=== PATIENT | male | born 1980 | race Hispanic/Latino ===

== ENCOUNTER 2020-03-03 00:09 | Emergency (ER) | payer SELFPAY ==
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
== END 2020-03-03 01:23 ==
LOC: ERS 00:09
DX: S00.33XA Contusion of nose, initial encounter (principal); R41.82 Altered mental status, unspecified; I10 Essential (primary) hypertension; V89.2XXA Person injured in unspecified motor-vehicle accident, traffic, initial encounter
CPT/HCPCS: 70450; 72125

== ENCOUNTER 2020-11-09 16:03 | Emergency (ER) | payer SELFPAY ==
[2020-11-09] MEDS ORDERED: cefTRIAXone\\ROCEPHIN 500 MG VIAL ONE (18:14)
[2020-11-09] MEDS ORDERED: Sterile Water 10 ML ONE (18:15)
[2020-11-11 19:31] LABS: Chlam.trachomatis by PCR,Urine Not Detected (NotDetected)
== END 2020-11-09 18:40 | disposition home or self-care (01) ==
LOC: ERS 16:03
DX: B00.9 Herpesviral infection, unspecified (principal); Z20.2 Contact with and (suspected) exposure to infections with a predominantly sexual mode of transmission
CPT/HCPCS: 87491; 87591; 96372; 99283; J0696

== ENCOUNTER 2020-11-13 22:38 | Inpatient (IN) | payer SELFPAY ==
[2020-11-13 23:18] LABS: #Basophils 0.1 thou/uL (0.0-0.2); #Eosinphils 0.1 thou/uL (0.0-0.7); #Lymphocytes 3.2 thou/uL (1.20-3.40); #Monocytes 0.7 thou/uL (0.11-0.59); #Neutrophils 5.1 thou/uL (1.40-6.50); %Basophils 0.6 % (0.0-1.0); %Eosinophils 1.6 % (0.0-10.0); %Lymphocytes 34.9 % (21.0-51.0); %Monocytes 7.3 % (0.0-10.0); %Neutrophils 55.6 % (42.0-75.0); Hemoglobin 17.4 g/dL (14.0-18.0); Mean Corpuscular HGB CONC 35.8 g/dL (32.0-36.0); Mean Corpuscular Hemoglobin 33.9 pg (27.0-31.0); Mean Corpuscular Volume 94.6 fL (78.0-98.0); Mean Platelet Volume 7.1 fL (7.4-10.4); Platelet Count 245 thou/uL (130-400); RBC Distribution Width 11.4 % (11.5-14.5); Red Blood Cell (RBC) Count 5.15 mill/uL (4.70-6.10); White Blood Cell (WBC) Count 9.1 thou/uL (4.8-10.8)
[2020-11-13] MEDS ORDERED: Labetalol HCl 100 MG/20 ML VIAL ONE (23:59)
[2020-11-14 00:03] LABS: CKMB 2.9 ng/mL (0-6.6)
[2020-11-14] MEDS ORDERED: Aspirin Chewable 81 MG TAB ONE ×2 (00:06→00:07)
[2020-11-14 01:17] LABS: Albumin 4.2 g/dL (3.5-5.0)
[2020-11-14 01:18] LABS: Calcium 9.9 mg/dL (7.8-10.44); Chloride 98 mmol/L (98-107); Potassium 4.3 mmol/L (3.5-5.1); Sodium 133 mmol/L (136-145)
[2020-11-14 01:19] LABS: Globulin 3.4 g/dL (2.4-3.5); Glucose 120 mg/dL (70-105); Protein, Total 7.6 g/dL (6.0-8.3)
[2020-11-14 01:21] LABS: Anion Gap 14 mmol/L (10-20); Bilirubin, Total 1.5 mg/dL (0.2-1.2); Carbon Dioxide 25 mmol/L (22-29)
[2020-11-14 01:22] LABS: Alkaline Phosphatase 94 U/L (40-110); Calc. Creatinine Clearance 0 mL/min (70-130)
[2020-11-14 01:23] LABS: BUN (Urea Nitrogen) 9 mg/dL (8.9-20.6)
[2020-11-14 01:24] LABS: AST (SGOT) 152 U/L (5-34)
[2020-11-14 01:25] LABS: ALT (SGPT) 237 U/L (8-55)
[2020-11-14 05:10] LABS: Troponin I 0.041 ng/mL (< 0.028)
[2020-11-14 06:15] VITALS: BMI 33.4
[2020-11-14 07:03] LABS: SARS-CoV-2 NAA Rapid Test Not Detected (NotDetected)
[2020-11-14] MEDS ORDERED: Dextrose 50% Abboject 50 ML SYRINGE SLOW IVP PRN (09:19)
[2020-11-14] MEDS ORDERED: HumaLOG 300 UNITS/3 ML VIAL SC PRN ×2 (09:19)
[2020-11-14] MEDS ORDERED: Dextrose 5% in Water 1,000 ML IV PRN (09:19)
[2020-11-14] MEDS ORDERED: Amlodipine 5 MG TAB PO SCH (09:30)
[2020-11-14] MEDS ORDERED: Amlodipine 5 MG TAB ONE (09:44)
[2020-11-14 09:54] LABS: Hemoglobin A1c 5.5 % (4.0-6.0)
[2020-11-14] MEDS ORDERED: hydrALAZINE 20 MG/ML VIAL SLOW IVP PRN (14:57)
[2020-11-14] MEDS ORDERED: Labetalol HCl 100 MG/20 ML VIAL SLOW IVP PRN (14:57)
[2020-11-15 01:04] LABS: Amphetamine Detected (NotDetected); Barbiturates Screen Not Detected (NotDetected); Benzodiazepine Screen Not Detected (NotDetected); Cocaine Metabolite Screen Detected (NotDetected); Methadone Not Detected (NotDetected); Methamphetamine Detected (NotDetected); Opiate Screen Not Detected (NotDetected); Oxycodone Screen Not Detected (NotDetected); Phencyclidine (PCP) Not Detected (NotDetected); THC/Cannabinoid Screen Not Detected (NotDetected); Tricyclic Screen Not Detected (NotDetected)
[2020-11-15 05:25] LABS: Cardiac Risk 6.7 (Less than 4.5)
[2020-11-15] MEDS: Aspirin Chewable 81 MG TAB PO SCH (08:52)
[2020-11-15] MEDS ORDERED: Amlodipine 5 MG TAB PO SCH ×2 (09:00→15:24)
[2020-11-15] MEDS ORDERED: Enoxaparin Sodium 40 MG/0.4 ML SYRINGE SC SCH (15:30)
[2020-11-15] MEDS: Atorvastatin Calcium 40 MG TAB PO SCH (20:09)
[2020-11-16] MEDS: Enoxaparin Sodium 40 MG/0.4 ML SYRINGE SC SCH (08:19)
[2020-11-16] MEDS: Aspirin Chewable 81 MG TAB PO SCH (08:19)
[2020-11-16] MEDS ORDERED: ADENOSINE 60 MG/20 ML VIAL ONE (08:47)
[2020-11-16] MEDS ORDERED: Iopamidol 370 76% 100 ML VIAL ONE (08:49)
[2020-11-16] MEDS ORDERED: Amlodipine 10 MG TAB PO SCH (09:00)
[2020-11-16] MEDS ORDERED: NIFEdipine XL 60 MG TAB PO SCH (09:00)
[2020-11-16] MEDS ORDERED: Heparin 10,000 UNITS/ 10 ML VIAL ONE (15:04)
[2020-11-16] MEDS ORDERED: Nitroglycerin 100MG/250ML BOT 250 ML ONE (15:05)
[2020-11-16] MEDS ORDERED: Verapamil 5 MG/2 ML VIAL ONE (15:05)
[2020-11-16] MEDS ORDERED: Midazolam HCl 2 mg/2 ml Vial ONE (15:35)
[2020-11-16] MEDS ORDERED: Fentanyl 100 MCG/2 ML VIAL ONE (15:35)
[2020-11-16] MEDS ORDERED: Sodium Chloride 0.9% 200 ML IV PRN (16:23)
[2020-11-16] MEDS ORDERED: Nitroglycerin 0.4 MG TAB (25 Tab Bottle) SL PRN (16:23)
[2020-11-16] MEDS ORDERED: Acetaminophen/Codeine 30-300mg Tablet PO PRN ×2 (16:23)
[2020-11-16] MEDS ORDERED: Sodium Chloride 0.9% 1,000 ML IV SCH (16:30)
[2020-11-16] MEDS: Atorvastatin Calcium 40 MG TAB PO SCH (20:34)
[2020-11-17] MEDS: Enoxaparin Sodium 40 MG/0.4 ML SYRINGE SC SCH (08:49)
[2020-11-17] MEDS: Aspirin Chewable 81 MG TAB PO SCH (08:49)
[2020-11-17] MEDS ORDERED: NIFEdipine XL 60 MG TAB PO SCH (09:00)
[2020-11-17 12:20] VITALS: TEMP 98.6
[2020-11-17 13:43] VITALS: BP 126/81
[2020-11-17] MEDS ORDERED: Carvedilol 6.25 MG TAB PO SCH (21:00)
[2020-11-17] MEDS ORDERED: Carvedilol 3.125 MG TAB PO SCH (21:00)
[2020-11-18] MEDS ORDERED: Losartan 25 MG TAB PO SCH (09:00)
== END 2020-11-17 18:02 | disposition home or self-care (01) | DRG 918 ==
LOC: ERS 22:38 → ERHOLD 11-14 03:45 → 2NO 11-14 17:10 → OBSVTOIN 11-15 15:19
PROVIDERS: ADMIT Student in an Organized Health Care Education/Training Program; ATTEND Internal Medicine
PROC: 4A023N7 Measurement of Cardiac Sampling and Pressure, Left Heart, Percutaneous Approach (ICD-10-PCS; principal; 2020-11-16)
PROC: B2111ZZ Fluoroscopy of Multiple Coronary Arteries using Low Osmolar Contrast (ICD-10-PCS; 2020-11-16)
PROC: B2151ZZ Fluoroscopy of Left Heart using Low Osmolar Contrast (ICD-10-PCS; 2020-11-16)
DX: T40.5X1A Poisoning by cocaine, accidental (unintentional), initial encounter (principal); I42.7 Cardiomyopathy due to drug and external agent; I50.22 Chronic systolic (congestive) heart failure; Z20.822 Contact with and (suspected) exposure to COVID-19; E66.9 Obesity, unspecified; E78.5 Hyperlipidemia, unspecified; F10.10 Alcohol abuse, uncomplicated; F14.10 Cocaine abuse, uncomplicated; E11.9 Type 2 diabetes mellitus without complications; I16.0 Hypertensive urgency; I08.1 Rheumatic disorders of both mitral and tricuspid valves; I11.0 Hypertensive heart disease with heart failure; R79.89 Other specified abnormal findings of blood chemistry; I25.10 Atherosclerotic heart disease of native coronary artery without angina pectoris; Z68.33 Body mass index [BMI] 33.0-33.9, adult; Z79.899 Other long term (current) drug therapy; Z83.3 Family history of diabetes mellitus; Z82.49 Family history of ischemic heart disease and other diseases of the circulatory system; Z91.19 Patient's noncompliance with other medical treatment and regimen; Z71.51 Drug abuse counseling and surveillance of drug abuser
CPT/HCPCS: 36415; 36416; 71045; 76705; 78452; 80053; 80061; 80306; 82553; 83036; 84484; 85025; 93005; 93017; 93306; 93458; 93798; 94760; 96374; 96376; 99152; 99153; A9500; G0378; J0153; J1644; J1650; J2250; J3010; J7050; Q9967; U0002